=== PATIENT | male | born 1965 | race African-American/Black ===

== ENCOUNTER 2016-12-29 19:49 | Emergency (ER) | payer OTHER ==
[~2016-12-29 19:49] MED LIST: ACET500CAP PO; ADVIL PO; ASAB PO; ATEN50 PO; B1100 PO; BEN GAY1.25 OZ TOP; CARDCD120 PO; CEFT5 PO; CIP5 PO; COLCRYS0.6 MG PO; CYANO1000T PO; FLAXSEED OIL PO; GARLIC PO; GINGER PO; GLUCOPHAGE1000 MG PO; HUMULIN SC; HYDRALAZINE100 MG PO; IMDUR30 PO; IND25 PO; INDO50 PO; INSNOV7030 SC; IRON325 MG PO; L20 PO; L40 PO; LEVEMIR SC; LINZESS 290 M290 MCG PO; MIRALAXPKT PO; MONODOX100 MG PO; NEUR300 PO; NIFEDIAC CC30 MG PO; NORV10 PO; NORV5 PO; NOVOLOG SC; OPTI CLEAR OPH; P10 PO; PRIN10 PO; PRIN20 PO; PROAIR HFA INH; PROTONIX PO; PROVENTSOL INH; PROVHFA INH; SENTAB PO; TURMERIC PO; ULORIC40 MG PO; VISINE0.05 % OPH; VITAMIN B PO; VITAMIN D400 UNI1 PO; Z100 PO; [UNRECOGNIZED DRUG - REMARK]
== END 2016-12-30 02:05 | disposition left against medical advice (07) ==
LOC: ER 19:49
DX: M79.606 Pain in leg, unspecified (principal); E11.9 Type 2 diabetes mellitus without complications; X58.XXXA Exposure to other specified factors, initial encounter; Z53.21 Procedure and treatment not carried out due to patient leaving prior to being seen by health care provider; Z91.018 Allergy to other foods; Z88.8 Allergy status to other drugs, medicaments and biological substances; Z79.82 Long term (current) use of aspirin; Z79.4 Long term (current) use of insulin; Z79.899 Other long term (current) drug therapy
CPT/HCPCS: 82962